=== PATIENT | female | born 1990 | race Caucasian/White ===

== ENCOUNTER 2017-10-01 11:37 | Emergency (ER) | payer MEDICAID ==
[~2017-10-01] VITALS: Ht 157.5 cm; Wt 54.4 kg
[2017-10-01] MEDS ORDERED: IBUPROFEN 800 MG TABLET PO ONE (12:30)
[2017-10-01] MEDS ORDERED: TDAP DIPH,PERTUSS,TET VAC/PF 0.5 ML DISP.SYRIN IM ONE ×2 (12:30→12:42)
[2017-10-01] MEDS ORDERED: IBUPROFEN 800 MG TABLET ONE (12:42)
[2017-10-01] MEDS ORDERED: NEOMY/BACITRA/POLYMYXIN B OINT UD PACKET TP ONE ×2 (13:23→13:30)
--- NOTE | 2017-10-01 13:42 | NUR ---
MSE COMNPLETED, PT HAD LEFT KNEE ABRASION CLEANED, TRIPLE ANTIBOITIC OINT PLACED , NON ADHIRING DRESSING AND MOMO BANDAGE PLACESD TO LEFT KNEE. DR MELENDEZ PLACED DERMA NUNEZ TO LEFRT EYEBROW LACERATION.
[2017-10-01 13:44] VITALS: BP 122/71
== END 2017-10-01 13:40 | disposition home or self-care (01) ==
LOC: ER 11:37
DX: S01.112A Laceration without foreign body of left eyelid and periocular area, initial encounter (principal); S09.90XA Unspecified injury of head, initial encounter; S16.1XXA Strain of muscle, fascia and tendon at neck level, initial encounter; S80.211A Abrasion, right knee, initial encounter; M22.40 Chondromalacia patellae, unspecified knee; W01.118A Fall on same level from slipping, tripping and stumbling with subsequent striking against other sharp object, initial encounter; Y93.89 Activity, other specified; Y92.89 Other specified places as the place of occurrence of the external cause; Y99.8 Other external cause status
CPT/HCPCS: 70450; 72125; 90715; A4663